=== PATIENT | male | born 1955 | race Caucasian/White ===

== ENCOUNTER 2017-11-26 07:16 | Inpatient (IN) | payer OTHER ==
[~2017-11-26] VITALS: Ht 172.7 cm; Wt 96.2 kg
[2017-11-26] VITALS (7 sets, daily range): BP systolic 131–196; BP diastolic 73–120
--- NOTE | ~2017-11-26 | EXE ---
[facility] [place] [address] STRESS ECHOCARDIOGRAM Name: HUMBERTO GASPAR Room #: 211-P [facility] IN M.R.#: [id number] Admission: 11/26/17 Attend Phys: Fish Meyer, Discharge: Date of : 57 Date of Service: 11/28/17 1056 Report #: [id number] THIS REPORT FOR: //name// APPROVED REPORT Exam: Stress Echocardiogram Indication: CAD s/p PCI Patient Location: Echo lab Stress Nurse: Amber Hernandez RN Room #: 211 Status: routine Ht: 5 ft 7 in HR: 78 bpm BP: 164/126 mmHg Medical History Medical History: CAD s/p stent, HTN, Hyperlipidemia Cardiac Risk Factors: HTN, Hyperlipidemia, Smoking, FHX of CAD Previous Cardiac Procedures: PCI Procedure The patient underwent an Exercise Stress Test using the Craig Protocol. Blood pressure, heart rate, and EKG were monitored. An Echocardiogram was performed by salvage engineering technician in four stages in quad fashion. At peak stress, four selected images were obtained and placed side by side with resting images for comparison. Stress Test Details Stress Test: Exercise stress testing was performed using a Craig protocol. HR Resting HR: 78 bpm Max Heart Rate (APMHR): 159 bpm Max HR Achieved: 148 bpm Target HR (85% APMHR): 135 bpm % of APMHR: 93 Recovery HR: 86 bpm HR response to stress: Normal HR response to stress BP Resting BP: 164/126 mmHg Max BP: 216/120 mmHg Recovery BP: 184/112 mmHg ECG [facility] [address] [place] [address] STRESS ECHOCARDIOGRAM Name: HUMBERTO GASPAR Julia Room #: 211-P [facility] IN .R.#: [id number] Admission: 11/26/17 Attend Phys: Fish Meyer, Discharge: Date of : 57 Date of Service: 11/28/17 1056 Report #: [id number] Clinical Reason for Termination: Maximal effort Exercise duration: 4 min 35 sec Highest Stage Achieved: Stage 2: 2.5 mph at 12% grade. Exercise capacity: 4.8 METs Pre-Stress Echo The resting Echocardiogram showed abnormal left ventricular contractility with an estimated Ejection Fraction of about 40-45%. The resting Echocardiogram demonstrated wall motion abnormality in the inferior . Post-Stress Echo The stress Echocardiogram showed abnormal left ventricular contractility with an estimated Ejection Fraction of about 40-45%. The stress Echocardiogram demonstrated wall motion abnormality in the inferior . Conclusion Clinical Response: Non-ischemic Exercise Capacity: Below Average Stress ECG Response: Non-ischemic Stress Echo Images: Non-ischemic fixed inf defect Other Information Study Quality: Good <Conclusion> fixed inf defect <ELECTRONICALLY SIGNED> By: Fish Meyer MD, [facility] [id number] [phone] Fish Meyer MD, FAC /INF
--- NOTE | ~2017-11-26 | D ---
[facility] [place] [address] DISCHARGE SUMMARY Name: HUMBERTO GASPAR Room #: 211-P [facility] IN M.R.#: [id number] Admission: 11/26/17 Attend Phys: Fish Meyer MD, Discharge: 11/28/17 Date of : 57 Report #: [id number] THIS REPORT FOR: //name// CC: Fish Mccann [facility]: The patient is a 62-year-old male who was lost to followup for a year and a half. Has had 2 interventions into a dominant circumflex, the last of which was 06/2016. He has had an inferior wall infarct. He came in with some back discomfort, which was consistent with his angina. He was ruled out for an infarct. No diagnostic EKG changes. Complained of some fatigue in addition. Subsequently, underwent stress echocardiographic exam, slightly submaximal to 4 minutes, but good at heart rate. No clear evidence of ischemia. No EKG changes and no definite wall motion abnormality were induced. He has been marginally compliant with his medications. His blood pressure has been up. He is working 2 jobs, lots of stress at home. We will send him home on an aspirin, amlodipine 10, Bystolic 10, lisinopril 40 and atorvastatin 40. He is to call with any recurrent chest pain or angina. Obviously some weight loss and exercise. At least aerobic activity will benefit here. We need to initiate some therapy, some advancement of his exercise and weight loss. DISCHARGE DIAGNOSES: 1. Chest and back pain of unclear etiology. 2. Coronary artery disease with history of stent x 2 to the right. Last intervention in 06/2016, moderate circumflex and left anterior descending disease (we did review these films). 3. 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 4. Hypertension. 5. Hypercholesterolemia. 6. Obesity. His LDL was also greater than 100. RECOMMENDATIONS AND PLAN: We will continue with the atorvastatin 40. A followup scheduled with him in my office in 3 weeks with a repeat lipid. Advance his diet, weight loss and exercise. Call with any issues. We would follow this up with nuclear stress testing depending on how he does and the timing of which would be the next 1-6 months. Follow up with Dr. Mccann is scheduled. Thank you for asking me to assist in the care of this patient. <ELECTRONICALLY SIGNED> By: Fish Meyer MD, FACC 11/30/17 1456 0940 1025 Fish Meyer MD, FACC /nt
--- NOTE | ~2017-11-26 | EKG ---
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1955 Requested By: Samantha Cruz Order Number: [id number] MD: Nathan Enrique Measurements Intervals [place] Rate: 80 P: 8 AK: 201 QRS: -33 QRSD: 110 T: 124 QT: 390 QTc: 450 Interpretive Statements Sinus rhythm Probable left atrial enlargement LVH with IVCD and secondary repol abnrm Inferior infarct, old Anterior ST elevation, probably due to LVH Baseline wander in lead(s) V2 Compared to ECG 07/19/2016 07:20:54 ST (T wave) deviation now present Myocardial infarct finding still present Electronically Signed On 11-26-2017 13:29:08 IT ADMIN by Nathan Enrique [email or web address] <ELECTRONICALLY SIGNED> By: Nathan Enrique MD 11/26/17 1329 8 8 Nathan Enrique MD /EPI
--- NOTE | ~2017-11-26 | EKG ---
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1955 Requested By: Fish Meyer Order Number: [id number] : Nathan Enrique Measurements Intervals [place] Rate: 83 P: 17 WI: 197 QRS: -39 QRSD: 90 T: 140 QT: 382 QTc: 449 Interpretive Statements Sinus rhythm Abnormal R-wave progression, late transition LVH with secondary repolarization abnormality Inferior infarct, old Anterior ST elevation, probably due to LVH Baseline wander in lead(s) V3 Compared to ECG 11/26/2017 07:29:30 Intraventricular conduction delay no longer present Myocardial infarct finding still present ST (T wave) deviation still present Electronically Signed On 11-27-2017 10:22:55 WAD IMPREGNATOR by Nathan Enrique [email or web address] <ELECTRONICALLY SIGNED> By: Nathan Enrique MD 11/27/17 1022 1438 1438 Nathan Enrique MD /EPI
--- NOTE | ~2017-11-26 | EKG ---
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: [facility] : 1955 Requested By: Samantha Cruz Order Number: [id number] MD: Nathan Enrique Measurements Intervals [place] Rate: 83 P: 3 ND: 199 QRS: -34 QRSD: 108 T: 100 QT: 387 QTc: 455 Interpretive Statements Sinus rhythm Probable left atrial enlargement Abnormal R-wave progression, late transition LVH with secondary repolarization abnormality Inferior infarct, old Anterior ST elevation, probably due to LVH Artifact in v2 Compared to ECG 07/19/2016 07:20:54 ST (T wave) deviation now present Intraventricular conduction delay no longer present Myocardial infarct finding still present Electronically Signed On 11-26-2017 13:28:48 COMMERCIAL PARTS PROFESSIONAL by Nathan Enrique [email or web address] <ELECTRONICALLY SIGNED> By: Nathan Enrique MD 11/26/17 1328 2 2 Nathan Enrique MD /EPI
--- NOTE | ~2017-11-26 | H ---
[facility] [place] [address] HISTORY AND PHYSICAL Name: HUMBERTO GASPAR Room #: 211-P [facility] IN M.R.#: [id number] Admission: 11/26/17 Attend Phys: Fish Meyer MD, Discharge: 11/28/17 Date of : 57 Report #: [id number] THIS REPORT FOR: //name// CC: Fish Mccann DATE OF SERVICE: 11/26/2017 HISTORY OF PRESENT ILLNESS: The patient is a 62-year-old male who I am acquainted with. He follows with our group. I had placed an emergent stent in his RCA in 06/2016. This was just distal to a stent that was placed initially in 12/2015. Those were Resolute drug-eluting stents, both dilated up to 3.1 mm. He had a 60% distal OM lesion, which was not amenable to intervention and a 40% LAD. He was lost to follow to us anyway and to Dr. Mccann, but does admit to taking his medications, which are lisinopril, 10 of atorvastatin and Toprol 25 or 50. He has not sought any followup since this. He did take his Effient for a year, he stated. He had been doing fairly well, perhaps some decrease in exercise tolerance, although not impressively. He had some back discomfort this morning, which made him uncomfortable, which he had awoken with and this was consistent with what his angina pain has been. He has some equivocal EKG changes here. He is pain free at this point with nitro, one in the ambulance and one in the Emergency Room. Equivocal EKG changes. There are inferior Q-waves noted. He is pain free and comfortable. PAST MEDICAL HISTORY: Positive for the coronary artery disease stated above with the stents in 12/2015 and 06/2016 to the mid RCA, small infarct with mild inferior wall hypo, right wrist surgery and fracture, hypertension, hypercholesterolemia, DJD, borderline moderately overweight. FAMILY HISTORY: Father from an infarct at 56. SOCIAL HISTORY: He is . He works for [employer]. Moderate alcohol user, quit tobacco 10 years ago. One child. No activity. Occasionally, may mow the lawn. ALLERGIES: No known drug allergies. REVIEW OF SYSTEMS: Negative except for some nocturia and hesitancy and as stated above. LABORATORY DATA: Creatinine 1.1, potassium 4.0. H and H are 13 and 41. Troponin is negative. Chest x-ray is no acute process. PHYSICAL EXAMINATION: VITAL SIGNS: Blood pressure was 190/120. He was given some labetalol and nitro paste. Currently, his pulse is in the 70s and 140/96. [facility] [address] [place] [address] HISTORY AND PHYSICAL Name: JAMESELAINAHUMBERTO Room #: 211-P DIS IN M.R.#: [id number] Admission: 11/26/17 Attend Phys: Fish Meyer MD, Discharge: 11/28/17 Date of : 57 Report #: [id number] GENERAL: He is in no distress. HEENT: Eyes reveal xanthelasmas. Pharynx is clear. NECK: Shows preserved upstrokes without JVD or bruits. LUNGS: Clear. CARDIAC: Regular rate and rhythm. S1, S2. ABDOMEN: Soft. No HSM, abdominal bruit. EXTREMITIES: Reveal no edema. Distal pulses intact. NEUROLOGIC: Nonfocal. SKIN: Warm and dry without xanthoma or ulcer. MUSCULOSKELETAL: Generalized arthritic changes. ASSESSMENT: 1. Recurrent chest pain consistent with prior angina. 2. Coronary artery disease with history of stent x 2 to the mid right coronary artery in December and 06/2016. 3. Mild ischemic cardiomyopathy. 4. Hypertension. 5. Hypercholesterolemia. RECOMMENDATIONS AND PLAN: The patient has been under a lot of stress. There has been really no medical followup since his stents. He has been taking his medications, he states. He also has to provide a fair amount of assistance to his who is relatively debilitated. I do not perceive that this may well be his angina, but we are not having, at least not an acute infarct. We will repeat the EKG and troponin in 6 hours and we will control his blood pressure. We have given labetalol and now IV Lopressor. He is pain free. Continue the nitro paste and Lovenox until I can discern whether there has been an ischemic event, and then there would be consideration of cardiac catheterization versus stress testing. We will check an echo Doppler and report that. I have transferred him from the ER to the CCU. He is pain free and stable hemodynamically. <ELECTRONICALLY SIGNED> By: Fish Meyer MD, FACC 11/30/17 1455 1047 1108 Fish Meyer MD, FACC /nt
--- NOTE | ~2017-11-26 | 2DMMODE ---
[facility] [address] [place] [address] 2 D/M-MODE ECHOCARDIOGRAM Name: HUMBERTO GASPAR Room #: 211-P [facility] IN ..#: [id number] Admission: 11/26/17 Attend Phys: Fish Meyer, Discharge: Date of : 57 Date of Service: 11/27/17 1353 Report #: [id number] THIS REPORT FOR: //name// APPROVED REPORT Study performed: 11/26/2017 09:35:51 EXAM: Comprehensive 2D, Doppler, and color-flow Echocardiogram Patient Location: Bedside Room #: ER Status: on-call BSA: 2.11 HR: 78 bpm BP: 153/99 mmHg Other Information Study Quality: Good Risk Factors: Cardiac Risk Factors: HTN, [place] Indications CAD Chest Pain 2D Dimensions LVEF(%): 43.63 (>50%) IVSd: 13.22 (7-11mm) LVOT Diam: 22.00 (18-24mm) LVDd: 54.53 mm PWd: 12.77 (7-11mm) Ascending Ao: 36.03 (22-36mm) LVDs: 42.65 (25-40mm) Aortic Root: 31.90 mm LV Single Plane 4CH: 47.01 % LV Single Plane 2CH: 42.00 % Noel's LVEF: 44.51 % Biplane EF: 41.3 % Volumes Left Atrial Volume (Systole) Single Plane 4CH: 75.50 mL Single Plane 2CH: 78.10 mL LA ESV Index: 40.00 mL/m2 Aortic Valve AoV Peak Rehan.: 1.36 m/s AO Peak Gr.: 7.35 mmHg LVOT Max P.64 mmHg LVOT Max V: 0.81 m/s [facility] [place] [address] 2 D/M-MODE ECHOCARDIOGRAM Name: HUMBERTO GASPAR Room #: 211-P [facility] IN M.R.#: [id number] Admission: 11/26/17 Attend Phys: Fish Meyer, Discharge: Date of : 57 Date of Service: 11/27/17 1353 Report #: [id number] NEYMAR Vmax: 2.36 cm2 AI Vmax: 4.47 m/s AI [place]: 2.07 m/s2 AI PHT: 624.71 ms Mitral Valve E/A Ratio: 0.8 MV Decel. Time: 212.03 ms MV E Max Rehan.: 0.71 m/s MV A Rehan.: 0.90 m/s MV PHT: 61.49 ms IVRT: 55.36 ms TDI E/Lateral E': 10.14 E/Medial E': 17.75 Medial E' Rehan.: 0.04 m/s Lateral E' Rehan.: 0.07 m/s Pulmonary Valve PV Peak Rehan.: 0.93 m/s PV Peak Gr.: 3.46 mmHg Pulmonary Vein P Vein S: 0.59 m/s P Vein A: 0.30 m/s P Vein D: 0.39 m/s P Vein A Dur.: 117.6 msec P Vein S/D Ratio: 1.51 Tricuspid Valve RAP Estimate: 7.00 mmHg Left Ventricle The left ventricle is normal size. Mid-basal inferior hypokinesis. Lateral hypokinesis. Mild concentric left ventricular hypertrophy. Left ventricular systolic function is mildly decreased. LVEF is 45-50%.inf wall hypokinetoc Grade I - abnormal relaxation pattern. Right Ventricle The right ventricle is normal size. The right ventricular systolic function is normal. Atria Left atrium is mildly dilated. The right atrium size is normal. Aortic Valve The Aortic valve is sclerotic. Mild aortic reg[place] [address] 2 D/M-MODE ECHOCARDIOGRAM Name: HUMBERTO GASPAR Room #: 211-P [facility] IN [facility]#: [id number] Admission: 11/26/17 Attend Phys: Fish Meyer, Discharge: Date of : 57 Date of Service: 11/27/17 1353 Report #: [id number] aortic valvular stenosis. Mitral Valve The mitral valve is normal in structure. Trace to mild mitral regurgitation. No evidence of mitral valve stenosis. Tricuspid Valve The tricuspid valve is normal in structure. Trace tricuspid regurgitation. Pulmonic Valve The pulmonary valve is normal in structure. There is no pulmonic valvular regurgitation. Great Vessels The aortic root is normal in size. IVC is normal in size and collapses with >50% inspiration Pericardium There is no pericardial effusion. <Conclusion> The left ventricle is normal size. Left ventricular systolic function is mildly decreased. LVEF is 45-50%.inf wall hypokinetoc Grade I - abnormal relaxation pattern. The right ventricle is normal size. Left atrium is mildly dilated. The Aortic valve is sclerotic. There is no aortic valvular stenosis. Trace to mild mitral regurgitation. Trace tricuspid regurgitation. The aortic root is normal in size. There is no pericardial effusion. <ELECTRONICALLY SIGNED> By: Fish Meyer MD, FACC 11/27/17 1353 1353 1353 Fish Meyer MD, FACC /INF
[~2017-11-26 07:16] MED LIST: ASPIRIN325 PO; AZOR 10-40 MG1 EACH PO; BYSTOLIC 5 MG5 M1 PO; EFFIENT10 MG PO; LIPITOR 20 MG T20 M1 PO; LISINOPRIL10 MG PO; LOPRESSOR25 PO; METOPROLOL SUCC50 MG PO; NITROGLYCERIN0.4 MG SUBLING; NOHOMEMEDICATIONS; NORCO 5-325 TA1 EACH PO; TOPROL XL25 MG PO; ZOCOR20 MG PO
[2017-11-26 07:51] LABS: ABSOLUTE NEUTROPHILS 3.2 thou/uL (1.4-8.2); BASOPHILS 0.8 % (0.0-2.0); EOSINOPHILS 2.4 % (0.0-3.0); HEMATOCRIT 41.7 % (42.0-52.0); HEMOGLOBIN 13.7 gm/dL (14.0-18.0); LYMPHOCYTES 26.7 % (24.0-44.0); MCH 28.2 pg (26.0-34.0); MCHC 32.9 g/dL (28.0-37.0); MCV 85.8 fL (80.0-100.0); MONOCYTES 11.2 % (1.0-8.0); PLATELET COUNT 238 thou/uL (150-400); POLYS 58.9 % (36.0-66.0); RBC 4.87 mil/uL (4.50-6.00); RDW 15.7 % (10.5-14.5); WBC 5.4 thou/uL (4.0-11.0)
[2017-11-26 08:01] LABS: ANION GAP 8 mmol/L (7-16); BUN 16 mg/dL (7-18); CALCIUM 8.7 mg/dL (8.5-10.1); CHLORIDE 104 mmol/L (98-107); CO2 28 mmol/L (21-32); CREATININE 1.1 mg/dL (0.7-1.3); GLUCOSE 136 mg/dL (74-106); SODIUM 140 mmol/L (136-145)
[2017-11-26 08:09] LABS: TROPONIN-I < 0.04 ng/mL (<0.06)
[2017-11-26] MEDS ORDERED: ZOCOR20 MG PO (08:19)
[2017-11-26 10:39] LABS: APTT 26.1 Seconds (24.5-32.8); PROTIME 9.9 Seconds (9.3-11.4)
[2017-11-27 04:19] VITALS: BP 180/121
[2017-11-27 08:00] VITALS: BP 178/99
[2017-11-27 12:00] VITALS: BP 191/109
[2017-11-27 18:15] VITALS: BP 176/104
[2017-11-27 20:47] VITALS: BP 206/116
[2017-11-27 23:04] VITALS: BP 167/105
[2017-11-28 03:56] LABS: CHOLESTEROL 142 mg/dL (<200); HDL CHOLESTEROL 44 mg/dL (>40); LDL CHOLESTEROL 84 mg/dL (<100); TC:HDL 3.2 Ratio (Not establshd); TRIGLYCERIDE 70 mg/dL (<150); VLDL 14 mg/dL (<40)
[2017-11-28 03:58] LABS: SERUM ASSESSMENT Clear
[2017-11-28 04:21] VITALS: BP 151/94
[2017-11-28 07:05] VITALS: BP 165/111
[2017-11-28] MEDS ORDERED: BYSTOLIC10 MG PO (09:39)
[2017-11-28] MEDS ORDERED: LISINOPRIL10 MG PO (09:39)
[2017-11-28] MEDS ORDERED: AMLODIPINE BESY10 MG PO (09:39)
[2017-11-28] MEDS ORDERED: ATORVASTATIN CA40 MG PO (09:39)
[2017-11-28 09:56] VITALS: BP 165/111
[2017-11-28 10:45] VITALS: BP 165/111
[2017-11-28 12:29] VITALS: BP 165/111
== END 2017-11-28 14:44 | disposition home or self-care (01) | DRG 313 ==
LOC: ER 07:16 → EROBS 08:13 → 2N 08:13
PROVIDERS: Emergency Medicine; Internal Medicine Cardiovascular Disease
DX: R07.9 Chest pain, unspecified (principal); I10 Essential (primary) hypertension; I25.10 Atherosclerotic heart disease of native coronary artery without angina pectoris; I25.5 Ischemic cardiomyopathy; E78.00 Pure hypercholesterolemia, unspecified; E66.9 Obesity, unspecified; I25.2 Old myocardial infarction; Z95.5 Presence of coronary angioplasty implant and graft; Z79.82 Long term (current) use of aspirin; Z79.899 Other long term (current) drug therapy; Z87.891 Personal history of nicotine dependence; Z68.32 Body mass index [BMI] 32.0-32.9, adult
CPT/HCPCS: 10194

== ENCOUNTER 2019-05-04 23:46 | Inpatient (IN) | payer OTHER ==
[~2019-05-04] VITALS: Ht 172.2 cm; Wt 96.6 kg
[~2019-05-04 23:46] MED LIST changes: +AMLODIPINE BESY10 MG PO; +ATORVASTATIN CA40 MG PO; +BYSTOLIC10 MG PO
[2019-05-04 23:48] VITALS: BP 217/121
[2019-05-05 00:29] LABS: HEMATOCRIT 45.8 % (42.0-52.0); HEMOGLOBIN 15.6 gm/dL (14.0-18.0); MCH 31.4 pg (26.0-34.0); MCHC 34.1 g/dL (28.0-37.0); MCV 91.9 fL (80.0-100.0); PLATELET COUNT 220 thou/uL (150-400); RBC 4.98 mil/uL (4.50-6.00); RDW 13.5 % (10.5-14.5); WBC 5.4 thou/uL (4.0-11.0)
[2019-05-05 00:35] LABS: ANION GAP 13 mmol/L (7-16); BUN 14 mg/dL (7-18); CALCIUM 9.4 mg/dL (8.5-10.1); CHLORIDE 101 mmol/L (98-107); CO2 25 mmol/L (21-32); GLUCOSE 107 mg/dL (74-106); POTASSIUM 3.6 mmol/L (3.5-5.1); SODIUM 139 mmol/L (136-145)
[2019-05-05 00:44] LABS: TROPONIN-I <0.06 ng/mL (<0.06)
[2019-05-05 01:17] LABS: ATYPICAL LYMPHS 1 %
[2019-05-05 09:15] VITALS: BP 132/81
--- NOTE | 2019-05-05 10:57 | EKG ---
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[facility] : 1955 Requested By: José Suarez Order Number: [id number] MD: Luiz Lee Measurements Intervals [place] Rate: 79 P: 3 NC: 197 QRS: -36 QRSD: 112 T: 9 QT: 391 QTc: 449 Interpretive Statements Sinus rhythm Probable left atrial enlargement Abnormal R-wave progression, late transition Left ventricular hypertrophy Inferior infarct, old ST elevation, consider anterolateral injury Baseline wander in lead(s) III No previous ECG available for comparison Electronically Signed On 05-05-2019 10:57:36 CDT by Luiz Lee [email or web address] <ELECTRONICALLY SIGNED> By: Luiz Lee MD 05/05/19 1057 0004 0004 Luiz Lee MD /EPI
--- NOTE | 2019-05-05 10:58 | EKG ---
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1955 Requested By: José Suarez Order Number: [id number] MD: Luiz Lee Measurements Intervals [place] Rate: 77 P: 7 TX: 212 QRS: -40 QRSD: 115 T: -12 QT: 392 QTc: 444 Interpretive Statements Sinus rhythm Prolonged [place] interval Nonspecific IVCD with LAD Left ventricular hypertrophy Inferior infarct, age indeterminate Compared to ECG 11/26/2017 14:38:28 Intraventricular conduction delay now present Myocardial infarct finding still present ST (T wave) deviation still present Electronically Signed On 05-05-2019 10:58:22 CDT by Luiz Lee [email or web address] <ELECTRONICALLY SIGNED> By: Luiz Lee MD 05/05/19 1058 0050 0050 Luiz Lee MD /EPI
[2019-05-05 11:09] VITALS: BP 136/89
[2019-05-05 12:08] VITALS: BP 162/88
[2019-05-05 13:15] VITALS: BP 150/77
--- NOTE | 2019-05-05 13:41 | NUR ---
PT ADMITTED FROM ED APPROX 1230. A&OX4, SR ON MONITOR, NO C/O OF CHEST PAIN, C/O PAIN IN LEFT SHOULDER WHEN TURNING HEAD TO LEFT. VSS. IV IN L AC SALINE LOCKED. RESTING COMFORTABLY. WILL CONTINUE TO MONITOR AND FOLLOW POC.
--- NOTE | 2019-05-05 17:26 | NUR ---
PT CONTINUES TO BE STABLE WITH NO C/O OF CHEST PAIN OR DIAPHORESIS. VSS. UP AT TOMMIE. SON AT BEDSIDE. WILL CONTINUE TO MONITOR AND FOLLOW POC.
[2019-05-05 19:34] VITALS: BP 145/89
[2019-05-06 04:45] VITALS: BP 144/82
--- NOTE | 2019-05-06 08:09 | HC ---
[facility] [place] [address] CONSULTATION Name: HUMBERTO GASPAR Room #: 213-P ADM IN M.R.#: [id number] Admission: 05/05/19 Attend Phys: Deondre Kelly MD Discharge: Date of : 57 Report #: [id number] THIS REPORT FOR: //name// CC: Kirby Kelly INDICATION: Anginal equivalent. HISTORY OF PRESENT ILLNESS: This is a 64-year-old gentleman with a history of DE; PCI, hypertension, hypercholesterolemia, presenting with back and left arm discomfort. Yesterday morning, he developed a discomfort in the upper mid back area, radiating down his left arm. It has been persistent and progressive since yesterday. He denies any shortness of breath, palpitations or lightheadedness. In the ER, the ECG reveals sinus rhythm with no acute ST segment changes. Two sets of troponin levels are negative. He tells me that when he turns his head to the left, the discomfort increases in intensity. There is no history of nausea, diarrhea, or fevers. PAST MEDICAL HISTORY: CAD with stent placement in 12/2015, presented with an inferior wall DE in 06/2016, undergoing stent placement. History of [id number]-byxpcg disease in the LAD and left circumflex arteries. Stress echo from 11/2017 was nonischemic. History of hypertension, hypercholesterolemia. ALLERGIES: None. MEDICATIONS: At home include aspirin daily, Lipitor 40 mg daily, Bystolic 10 mg, amlodipine 10 mg, and lisinopril 40 mg daily. SOCIAL HISTORY: Denies tobacco use. FAMILY HISTORY: Negative for premature CAD. REVIEW OF SYSTEMS: A full 10-point review of systems performed. Only the pertinent positives and negatives are described in the HPI. PHYSICAL EXAMINATION: VITAL SIGNS: Blood pressure is 130/80, heart rate is 60 beats per minute. GENERAL: Appearance is a well-developed, well-nourished male in no acute distress. HEENT: Normocephalic, atraumatic. Oral mucosa moist. NECK: Supple. LUNGS: Clear to auscultation. CARDIAC: Regular rate and rhythm. S1, S2 positive. ABDOMEN: Soft, nontender. EXTREMITIES: No cyanosis, trace to 1+ bilateral lower extremity edema. ECG reveals sinus rhythm, inferior Q-waves, early repolarization. [facility] [address] [place] [address] CONSULTATION Name: HUMBERTO GASPAR Room #: 213-P [facility] IN M.R.#: [id number] Admission: 05/05/19 Attend Phys: Deondre Kelly MD Discharge: Date of : 57 Report #: [id number] LABORATORY VALUES: Two sets of troponins are negative. White count is 5.4, hemoglobin 15.6, creatinine is 1.0. ASSESSMENT AND PLAN: 1. Chest pain syndrome, he has had discomfort for more than 12 hours in duration. Two sets of troponins are negative and the ECG does not show any acute ST segment changes. Doubt that this is cardiac related. However, he reports that the discomfort is worsened with movement of his head, probably neurologic in etiology. 2. Hypertension, continue medications. 3. Hypercholesterolemia, tolerating statin therapy. Offers no complaints of myalgias. 4. CAD/stent placement, continue with aspirin. <ELECTRONICALLY SIGNED> By: Luiz Lee MD 05/06/19 0809 1145 1527 Luiz Lee MD /nt
[2019-05-06 08:33] VITALS: BP 165/93
[2019-05-06 11:50] VITALS: BP 150/82
[2019-05-06] MEDS ORDERED: TRAMADOL 50 MG50 MG PO (14:33)
[2019-05-06] MEDS ORDERED: LYRICA 75 MG CA75 MG PO (14:33)
[2019-05-06] MEDS ORDERED: ROBAXIN 750 MG750 MG PO (14:33)
[2019-05-06] MEDS ORDERED: PREDNISONE 20 M20 M1 PO (14:33)
[2019-05-06 14:56] VITALS: BP 150/82
[2019-05-06 15:17] VITALS: BP 150/82
--- NOTE | 2019-05-06 15:46 | NUR ---
ASSUMED CARE OF PT AT SHIFT CHANGE. ASSESSMENT CHARTED. MEDS PER NOV. PT A&O X4. VSS. NO C/O OF CHEST PAIN. COMPLETED DISCHARGE ORDERS. GAVE PT RX FOR NEW MEDS. DISCUSSED DISCHARGE INSTURCTINS AND GAVE COPIES OF MED INFO AND DISCHARGE INSTRUCTIONS. PT COMMUNICATED UNDERSTANDING. DC IV, TELE LEADS AND BOX.
== END 2019-05-06 15:37 | disposition home or self-care (01) | DRG 313 ==
LOC: ER 23:46 → EROBS 05-05 05:43 → 2N 05-05 05:43
PROVIDERS: Emergency Medicine; ADMIT Internal Medicine
DX: R07.89 Other chest pain (principal); I16.1 Hypertensive emergency; E78.00 Pure hypercholesterolemia, unspecified; I10 Essential (primary) hypertension; I25.10 Atherosclerotic heart disease of native coronary artery without angina pectoris; M50.322 Other cervical disc degeneration at C5-C6 level; M50.323 Other cervical disc degeneration at C6-C7 level; I25.2 Old myocardial infarction; Z95.5 Presence of coronary angioplasty implant and graft; Z87.891 Personal history of nicotine dependence; Z79.899 Other long term (current) drug therapy
CPT/HCPCS: 10081

== ENCOUNTER 2019-06-12 13:51 | Emergency (ER) | payer OTHER ==
[~2019-06-12] VITALS: Ht 172.7 cm; Wt 95.3 kg
--- NOTE | ~2019-06-12 | EMS ---
[facility] [address] [place] [address] EMS Patient Care Report Name: HUMBERTO GASPAR Room #: DEP DAPHNE Alejandro#: [id number] Admission: 06/12/19 ������������������ Attend Phys: Discharge: 06/12/19 ������������������ Date of : 57 Report #: [id number] THIS REPORT FOR: //name// Report Transmitted: 06/14/2019 16:04 EMS Care Summary [facility] MED-ACT Incident [id number] @ 06/12/2019 13:02 Incident Location [address] [place] [id number] Patient HUMBERTO GASPAR Male, 64 Years 1955 Patient Address [address] [place] [id number] Patient History Cardiac Arrythmia,Hypertension,Cardiac - Stent, Patient Allergies No known allergies, Patient Medications Lyrica, Lisinopril, Aspirin, Cymbalta, Amlodipine, Chief Complaint I feel dizzy Disposition Transported No Lights/[place] Dispatch Reason Chest Pain (Non-Traumatic) Transported To [facility] Narrative Patient reports he began feeling dizzy and had a flutter in his chest while driving to work today. After arrival at work, patient informed his supervisor of guidance and testing, who called 911. [facility] [address] [place] [address] EMS Patient Care Report Name: HUMBERTO GASPAR Room #: DEP ER AleshiaRobinShiraRobin#: [id number] Admission: 06/12/19 ������������������ Attend Phys: Discharge: 06/12/19 ������������������ Date of : 57 Report #: [id number] On arrival, patient was found sitting in a chair being assessed by Frances cardoso. Patient advised that he still felt dizzy, but that the fluttering in his chest has gone away. Patient denied any MAGANA, N/V, chest pain, dyspnea, diarrhea, recent illness or injury. Initial Vitals @13:38P: 99,R: 18,BP: 171/103,Pain: 0/10,SpO2: 96,MN Suspected: false @13:25P: 106,R: 20,BP: 167/106,SpO2: 98, @13:17P: 112,R: 20,BP: 198/122,SpO2: 97,MN Suspected: false @13:30P: 103,R: 20,BP: 167/109,Pain: 0/10,SpO2: 96, @13:13P: 129,R: 20,BP: 202/125,SpO2: 98, @13:13P: 124,R: 20,BP: 202/125,Pain: 0/10,SpO2: 97,MN Suspected: false Assessments @13:11MENTAL:Person Oriented,Time Oriented,Place Oriented,Event Oriented,SKIN:HEENT:Head/Face: No Abnormalities,LUNG SOUNDS:ABDOMEN:PELVIS//GI:No Abnormalities,EXTREMITIES:Left Arm: No Abnormalities,Right Arm: No Abnormalities,Left Leg: No Abnormalities,Right Leg: No Abnormalities,PULSE:NEURO:No Abnormalities, Impression Dizziness Procedures @13:1312-Lead ECGResponse: UnchangedSucceeded@13:3812-Lead ECGResponse: UnchangedSucceeded@13:1812-Lead ECGResponse: UnchangedSucceeded@PTAAspirin - 324 Milligrams (mg) - OralResponse: Unchanged@13:24Saline Lock 10cc (20 ga) Site: Antecubital-RightResponse: UnchangedSucceeded Timeline DELIVERER FOOD,Aspirin - 324 Milligrams (mg) - Oral,Response: Unchanged 13:02,Call Received 13:02,Psap Call 13:02,Dispatched 13:03,En Route 13:08,On Scene 13:10,At Patient 13:13,12-Lead ECG,Response: UnchangedSucceeded, 13:13,BP: 202/125 M,PULSE: 124,RR: 20 R,SPO2: 97 Ox,ETCO2: ,BG: ,PAIN: 0,GCS: , 13:13,BP: 202/125 M,PULSE: 129,RR: 20 R,SPO2: 98 Ox,ETCO2: ,BG: ,PAIN: ,GCS: , 13:17,BP: 198/122 M,PULSE: 112,RR: 20 R,SPO2: 97 Ox,ETCO2: ,BG: ,PAIN: ,GCS: , 13:18,12-Lead ECG,Response: UnchangedSucceeded, 13:24,Saline Lock 10cc 20 ga Site: Antecubital-Right,Response: UnchangedSucceeded, 13:25,BP: 167/106 M,PULSE: 106,RR: 20 R,SPO2: 98 Ox,ETCO2: ,BG: ,PAIN: ,GCS: , 13:26,Depart Scene [address] [place] [address] EMS Patient Care Report Name: HUMBERTO GASPAR Room #: [facility] M.R.#: [id number] Admission: 06/12/19 ������������������ Attend Phys: Discharge: 06/12/19 ������������������ Date of : 57 Report #: [id number] 13:30,BP: 167/109 M,PULSE: 103,RR: 20 R,SPO2: 96 Ox,ETCO2: ,BG: ,PAIN: 0,GCS: , 13:38,12-Lead ECG,Response: UnchangedSucceeded, 13:38,BP: 171/103 M,PULSE: 99,RR: 18 R,SPO2: 96 Ox,ETCO2: ,BG: ,PAIN: 0,GCS: , 13:44,At Destination 14:00,Call Closed Disclaimer v1.1 Copyright 2019 [employer] This EMS Care Summary contains data elements from the applicable legal record (which may be displayed differently). It is designed to provide pertinent information for the following purposes: continuity of care, clinical quality, and state data reporting. The complete legal record is available to ED staff and administrators of the receiving hospital in [employer]'s Patient Tracker. All data is provided "as is."
[~2019-06-12 13:51] MED LIST changes: +LYRICA 75 MG CA75 MG PO; +PREDNISONE 20 M20 M1 PO; +ROBAXIN 750 MG750 MG PO; +TRAMADOL 50 MG50 MG PO
[2019-06-12] MEDS ORDERED: ZETIA10 MG PO (14:02)
[2019-06-12] MEDS ORDERED: BYSTOLIC20 MG PO (14:02)
[2019-06-12] MEDS ORDERED: CYMBALTA30 MG PO (14:02)
[2019-06-12 14:03] LABS: ABSOLUTE NEUTROPHILS 5.7 thou/uL (1.4-8.2); EOSINOPHILS 0.4 % (0.0-3.0); HEMATOCRIT 45.2 % (42.0-52.0); LYMPHOCYTES 17.5 % (24.0-44.0); MCH 31.3 pg (26.0-34.0); MCHC 33.3 g/dL (28.0-37.0); MONOCYTES 7.5 % (1.0-8.0); PLATELET COUNT 236 thou/uL (150-400); POLYS 73.6 % (36.0-66.0); RBC 4.81 mil/uL (4.50-6.00); RDW 13.7 % (10.5-14.5); WBC 7.7 thou/uL (4.0-11.0)
[2019-06-12 14:08] LABS: ANION GAP 15 mmol/L (7-16); BUN 22 mg/dL (7-18); CALCIUM 9.5 mg/dL (8.5-10.1); CHLORIDE 103 mmol/L (98-107); CO2 24 mmol/L (21-32); GLUCOSE 177 mg/dL (74-106); POTASSIUM 3.7 mmol/L (3.5-5.1); SODIUM 142 mmol/L (136-145)
[2019-06-12 14:18] LABS: ALBUMIN 4.3 g/dL (3.4-5.0); SGOT 64 U/L (15-37); SGPT 117 U/L (30-65); TOTAL BILIRUBIN 0.7 mg/dL (<0.1-1.0); TROPONIN-I <0.06 ng/mL (<0.06)
[2019-06-12 15:18] VITALS: BP 168/93
[2019-06-12] MEDS ORDERED: ATIVAN0.5 MG PO (15:23)
--- NOTE | 2019-06-13 08:10 | EKG ---
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 : 1955 Requested By: Cheyenne Covarrubias Order Number: [id number] MD: Nathan Enrique Measurements Intervals [place] Rate: 104 P: 3 DE: 179 QRS: -38 QRSD: 109 T: 21 QT: 347 QTc: 457 Interpretive Statements Sinus tachycardia Abnormal R-wave progression, late transition Left ventricular hypertrophy Electronically Signed On 06-13-2019 8:10:23 CDT by Nathan Enrique [email or web address] ��������������������������������������������� <ELECTRONICALLY SIGNED> ���������������������������������������� By: Nathan Enrique MD ��������������������������������������������� 06/13/19 0810 1350 1350 Nathan Enrique MD /CARLYN
== END 2019-06-12 15:39 | disposition home or self-care (01) ==
LOC: ER 13:51
PROVIDERS: Emergency Medicine Emergency Medical Services
DX: I10 Essential (primary) hypertension (principal); F41.9 Anxiety disorder, unspecified; R42 Dizziness and giddiness; Z87.891 Personal history of nicotine dependence

== ENCOUNTER → 2019-06-21 | Outpatient (CLI) | payer OTHER ==
[~2019-06-21] MED LIST changes: +ASA81BEC PO; +ATIVAN0.5 MG PO; +BYSTOLIC20 MG PO; +CYMBALTA30 MG PO; +EDARBI40 MG PO; +MEDROLDOSEPACK PO; +ZETIA10 MG PO
== END ==
LOC: MRI 11:56
DX: M50.122 Cervical disc disorder at C5-C6 level with radiculopathy (principal); M25.78 Osteophyte, vertebrae; M48.02 Spinal stenosis, cervical region

== ENCOUNTER → 2019-07-13 | Outpatient (CLI) | payer OTHER ==
[~2019-07-13] VITALS: Ht 375.9 cm; Wt 96.5 kg
[2019-07-13 08:30] VITALS: BP 168/98
--- NOTE | 2019-07-13 09:05 | NUR ---
Pain Clinic Assessment: 1. History of Osteoarthritis: NECK History of Rheumatoid Arthritis: Not Applicable 2. Height: 5 ft. 88 in. 375.9 cm. Weight: 212.8 lb. oz. 96.526 kg. Patient's BMI: 6.8 3. Vital Signs: BP: 168/98 Pulse: 78 Resp: 16 Temp: 02 Sat: 99 ECG Mon: 4. Pain Intensity: 6 5. Fall Risk: Dizziness: Y Needs help standing or walking: N Fallen in the last 3 months: N Fall risk comments: 6. Patient on Blood Thinner: None 7. History of Hypertension: Y 8. Opioid Therapy greater than 6 weeks: N Opiate Contract Signed: 9. Risk Assessment Tool Provided: 10. Functional Assessment Tool: 11. Recreational Drug Use: Never Drug Type: Tobacco Use: Never Smoker Tobacco Type: Amount or Packs/day: How Many Years: Alcohol Use: No Frequency: Quant:
--- NOTE | 2019-08-03 08:14 | HPC ---
[facility] [address] [place] [address] PAIN MANAGEMENT CONSULTATION Name: CHASITYHUMBERTO LANDRY Room #: REG KORIPhi Alejandro#: [id number] Admission: 07/13/19 Attend Phys: Lizandro Mercado MD Discharge: Date of : 57 Report #: [id number] THIS REPORT FOR: //name// CC: Kirby Burch DATE OF SERVICE: 07/13/2019 CHIEF COMPLAINT: Neck pain and left arm pain. HISTORY OF PRESENT ILLNESS: The patient is a 64-year-old gentleman who has been referred to the pain clinic for evaluation. The patient has had pain, which has been problematic since 03/2019. He has noticed a worsening of his pain. He notes that using his computer exacerbates his discomfort. Moving his head up and down motion exacerbates her discomfort. Notes some increased discomfort when sleeping on his side. Does note some decreased strength in his hands. Has some numbness and tingling involving his index and thumb. He has been told that he has some spinal stenosis. He has had some burning pain in the left arm. Has some sensation of pins and needle sensation in his arm. Feels that the pain has become progressively worse. Denies any traumatic incident. Rates his pain between 4/10, can rise to the level of 6/10 at its worst. Has tried Lyrica and has noted some improvement in the pain. Has had a steroid injection in the shoulder area with no long-term benefit. ALLERGIES: No known drug allergies. CURRENT MEDICATIONS: Aspirin 81 mg, Bystolic 20 mg, Cymbalta 30 mg, Zetia 10 mg, tramadol 50 mg q.4 hours p.r.n., Lyrica 75 mg b.i.d., amlodipine 10 mg, and azilsartan 40 mg. PAST MEDICAL HISTORY: Myocardial infarction x 2, hypertension, stent placement x 2, hypercholesterolemia, hypertension, and emotional problems. PAST SURGICAL HISTORY: Fracture of the right wrist 03/2014 and stent placement. 01/2016 and 06/2017. 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 He is working at this juncture. REVIEW OF SYSTEMS: Weight change, fatigue, weakness, wears glasses, heart trouble, loss of appetite, numbness and tingling sensation in the left thumb and index finger, nervousness, and depression. LABORATORY DATA: MRI cervical spine dated 06/21/2019: 1. C4-C5, no disk bulge. There is no central canal [place] [address] PAIN MANAGEMENT CONSULTATION Name: HUMBERTO GASPAR Room #: REG [facility].#: [id number] Admission: 07/13/19 Attend Phys: Lizandro Mercado MD Discharge: Date of : 57 Report #: [id number] 2. C5-C6, there is a generalized posterior disk osteophyte complex, which contributes to mild central canal stenosis and severe bilateral neural foraminal stenosis. 3. C6-C7, there is a generalized posterior disk osteophyte complex, which contributes to severe left and [id number] left neural foraminal stenosis and mild neural canal stenosis. 4. there is no bulge. There is no central canal or neural foraminal stenosis. X-ray cervical spine 4 views dated 05/05/2019. Impression, no fracture or listhesis. Mild degenerative disk disease at C5-C6 and C6-C7 with at least mild facet arthropathy seen throughout the cervical spine with multilevel left-sided osseous foraminal narrowing due to uncovertebral hypertrophy and facet arthropathy. PAIN CLINIC ASSESSMENT/PQRS: 1. History of osteoarthritis. The patient has some arthritic changes in his neck. He is not being treated for rheumatoid arthritis. 2. Height 5 feet 8 inches, weight 212 pounds, BMI to be calculated. 3. Vital signs: Blood pressure 168/98, pulse 78, respiratory rate 16, room air saturation 99%. 4. Pain intensity 6/10. 5. Fall history: The patient has not fallen in the last 3 months. 6. Blood thinner. The patient is not on a blood thinning medication. 7. Hypertension. The patient is not being treated for hypertension. 8. Opioids greater than 6 weeks. The patient is not on opioid regimen, is using tramadol. 9. Risk assessment tool, low for opioid use. 10. Functional assessment tool. 11. Recreational drug use. The patient denies. 12. Tobacco: The patient has never smoked. 13. Alcohol. The patient denies frequent use of alcoholic beverages at this juncture. PHYSICAL EXAMINATION: GENERAL: The patient is a well-developed, well-nourished white male. Appears his stated age. He is alert and oriented x 3. Affect is appropriate. Speech is fluent. HEENT: Normocephalic, atraumatic. Extraocular eye muscles intact. Sclerae nonicteric. Mucous membranes are moist. NECK: Without adenopathy or JVD. EXTREMITIES: Upper extremity muscle strength is judged to be 5/5 for the right side. The patient has some pain and discomfort on the left shoulder with pain that radiates down into the arm and forearm with numbness and tingling. The patient has a perception of numbness in his thumb and index finger. Notes some [address] [address] PAIN MANAGEMENT CONSULTATION Name: HUMBERTO GASPAR Room #: REG [facility]#: [id number] Admission: 07/13/19 Attend Phys: Lizandro Mercado MD Discharge: Date of : 57 Report #: [id number] decreased meter tester strength. Deep tendon reflexes are +1 and on the right and about 1+ on the left. HEART: Regular rate. ABDOMEN: Nontender. LUNGS: Clear to auscultation. MUSCULOSKELETAL: Lower extremity muscle strength is judged to be 5/5 for the major muscle groups in the lower extremity. Forward bending to about 90 degrees was not very problematic. Heel standing and toe standing were not problematic. Left and right lateral bending and left and right lateral rotation were not problematic. IMPRESSION: 1. Cervical radiculopathy involving the left arm with numbness and tingling in the thumb and middle finger. Discomfort in the C6-C7 dermatomal distribution on the left. 2. Myocardial infarction x 2. 3. Hypertension. 4. Stent placement x 2. 5. Hypercholesterolemia. 6. Hypertension. 7. Emotional problems. RECOMMENDATIONS: We discussed treatment options with the patient. The patient is having C6-C7 dermatomal changes with sensory changes with numbness, tingling, and weakness in his left upper arm. The patient has increased pain and discomfort when lying on his right side and more pain and discomfort in the morning when he awakens and finds that using his computer with his arm stretch forward exacerbates his discomfort. Notes some increased discomfort with driving with his arm extended. The patient is unable to take nonsteroidal anti-inflammatory medications because of his heart stents. Has had an MRI. He has been stretching and doing physical activity to try and increase his muscle strength and decreased pain and discomfort he is experiencing in the left arm. We will petition the patient's insurance carrier. The patient is showing outward signs of cervical radiculopathy with sensory changes. He will return to the Pain Clinic at which time he will undergo a cervical epidural steroid injection to help curtail his pain and discomfort. The patient has been given a Medrol Dosepak to take in the interim. Hopefully, he will find that this is helpful. Should his pain persists, he will then undergo a cervical epidural steroid injection in the pain clinic. [address] [address] PAIN MANAGEMENT CONSULTATION Name: HUMBERTO GASPAR Room #: REG Phi Flavia#: [id number] Admission: 07/13/19 Attend Phys: Lizandro Mercado MD Discharge: Date of : 57 Report #: [id number] We would like to thank you for letting us participate in his care. We hope he continues to improve. <ELECTRONICALLY SIGNED> By: Lizandro Mercado MD 08/03/19 0814 0036 0118 Lizandro Mercado MD /ADAM
== END ==
LOC: PAIN 06:53
DX: M54.12 Radiculopathy, cervical region (principal); I25.2 Old myocardial infarction; I10 Essential (primary) hypertension; E78.00 Pure hypercholesterolemia, unspecified; Z95.5 Presence of coronary angioplasty implant and graft; Z79.82 Long term (current) use of aspirin; Z79.899 Other long term (current) drug therapy

== ENCOUNTER → 2019-07-25 | Outpatient (CLI) | payer OTHER ==
[~2019-07-25] VITALS: Ht 170.2 cm; Wt 96.8 kg
[2019-07-25 09:07] VITALS: BP 173/99
--- NOTE | 2019-07-25 09:14 | NUR ---
Pain Clinic Assessment: 1. History of Osteoarthritis: NECK History of Rheumatoid Arthritis: Not Applicable 2. Height: 5 ft. 7 in. 170.2 cm. Weight: 213.4 lb. oz. 96.798 kg. Patient's BMI: 33.4 3. Vital Signs: BP: 173/99 Pulse: 72 Resp: 18 Temp: 02 Sat: 98 ECG Mon: 4. Pain Intensity: 5 5. Fall Risk: Dizziness: Y Needs help standing or walking: N Fallen in the last 3 months: N Fall risk comments: 6. Patient on Blood Thinner: None 7. History of Hypertension: Y 8. Opioid Therapy greater than 6 weeks: N Opiate Contract Signed: 9. Risk Assessment Tool Provided: 10. Functional Assessment Tool: 11. Recreational Drug Use: Never Drug Type: Tobacco Use: Never Smoker Tobacco Type: Amount or Packs/day: How Many Years: Alcohol Use: No Frequency: Quant:
--- NOTE | 2019-08-03 08:25 | HPC ---
[facility] [address] [place] [address] PAIN MANAGEMENT CONSULTATION Name: HUMBERTO GASPAR Room #: REG ZOHAIB Alejandro#: [id number] Admission: 07/25/19 Attend Phys: Lizandro Mercado MD Discharge: Date of : 57 Report #: [id number] THIS REPORT FOR: //name// CC: Kirby Mercado DATE OF SERVICE: 07/25/2019 CHIEF COMPLAINT: Left arm and neck pain. HISTORY: The patient is a 64-year-old gentleman who has been seen in the pain clinic. He has been experiencing pain since 03/2019. At this point, the patient's pain has worsened. Movement of his head and arms exacerbate his discomfort. Notes some decreased strength in his hands. Has numbness and tingling in his index and thumb. He has been told that he has spinal stenosis. There is some burning discomfort in his left arm. She feels that his pain has progressed. Pain is 4/10 at this point, it can rise to the level of 6/10 particularly with use of a computer, driving, or other types of things where his arms are use. ALLERGIES: No known drug allergies. CURRENT MEDICATIONS: Aspirin 81 mg, Bystolic 20 mg, Cymbalta 30 mg, Zetia 10 mg, tramadol 50 mg every 4 hours, Lyrica 75 mg b.i.d., amlodipine 10 mg, and azilsartan 40 mg. PAIN CLINIC ASSESSMENT/PQRS: 1. The patient has some arthritic changes in his neck. He is not being treated for rheumatoid arthritis. 2. Height 5 feet 8 inches, weight is 213 pounds, BMI is 33.4. 3. Vital signs: Blood pressure 173/99, pulse 72, respiratory rate 18, room air saturation 98%. 4. Pain intensity 5/10. 5. Fall history: The patient has not fallen in the last 3 months. 6. Blood thinner. The patient is not on a blood thinning medication. 7. Hypertension. The patient is being treated for hypertension. 8. Opioids greater than 6 weeks. The patient receives medications from his primary. 9. Risk assessment tool, low for opioid use. 10. Functional assessment tool. 11. Recreational drug use: The patient denies. 12. Tobacco: The patient has never smoked. 13. Alcohol. The patient denies use of alcoholic beverages. PHYSICAL EXAMINATION: GENERAL: The patient is a well-developed, well-nourished white male. Appears [facility] [address] [place] [address] PAIN MANAGEMENT CONSULTATION Name: HUMBERTO GASPAR [id number] Admission: 07/25/19 Attend Phys: Lizandro Mercado MD Discharge: Date of : 57 Report #: [id number] his stated age. He is alert and oriented x 3. His affect is appropriate. Speech is fluent. HEAD, EYES, EARS, NOSE, AND THROAT: Normocephalic, atraumatic. Extraocular eye muscles intact. Sclerae nonicteric. Mucous membranes are moist. NECK: Without adenopathy or JVD. EXTREMITIES: Upper extremity, the patient has some pain and discomfort. Muscle strength is judged to be 5/5 for the major muscle groups. Has pain that radiates down into his left shoulder and into the forearm with numbness and tingling. Has perception of numbness and tingling in his thumb and index finger. HEART: Regular rate. ABDOMEN: Nontender. LUNGS: Clear to auscultation. MUSCULOSKELETAL: Lower extremity, 5/5 for the major muscle groups in the lower extremity. IMPRESSION: 1. Cervical radiculopathy involving the left arm with numbness and tingling of the thumb and middle finger with discomfort into the C6-C7 dermatomal distribution on the left hand. 2. Myocardial infarct x 2. 3. Hypertension. 4. Stent placement x 2. 5. Hypercholesterolemia. 6. Hypertension. 7. Emotional problems. RECOMMENDATIONS: We discussed the treatment options with the patient. Risks and benefits of an epidural steroid injection were discussed. They include but are not limited to infection, worsening pain, no improvement in pain, nerve damage, infection, paralysis. The patient agrees and elects to proceed. PROCEDURE NOTE: The patient was taken to the procedure area. He was then assisted in getting on the examination table. His back was sterilely prepped and the neck area with a Betadine solution. Fluoroscopy using anterior, posterior as well as lateral viewing, with fluoroscopy was undertaken. A 25-gauge needle was then used to anesthetize the skin at C7-T1 interspace space. A 17-gauge Tuohy with loss of resistance technique was then used to gain access to the epidural space. There was no CSF, heme or paresthesia. A total of 120 mg of triamcinolone was injected. The patient tolerated the procedure well. There were no complications. His pain decreased to 0 at the time of discharge. He will follow up in the future as needed. [address] [address] PAIN MANAGEMENT CONSULTATION Name: HUMBERTO GASPAR Room #: REG CLPhi ChandlerRobin#: [id number] Admission: 07/25/19 Attend Phys: Lizandro Mercado MD Discharge: Date of : 57 Report #: [id number] We would like to thank you for letting us to participate in his care. We hope he continues to improve. <ELECTRONICALLY SIGNED> By: Lizandro Mercado MD 08/03/19 0825 0909 1443 Lizandro Mercado MD /ADAM
== END | disposition home or self-care (01) ==
LOC: PAIN 06:50
DX: M54.12 Radiculopathy, cervical region (principal); I25.2 Old myocardial infarction; I10 Essential (primary) hypertension; E78.00 Pure hypercholesterolemia, unspecified; Z79.82 Long term (current) use of aspirin; Z79.899 Other long term (current) drug therapy

== ENCOUNTER → 2019-09-05 | Outpatient (CLI) | payer OTHER ==
[~2019-09-05] VITALS: Ht 170.2 cm; Wt 92.9 kg
[~2019-09-05] MED LIST changes: +AMITRIPTYLINE H10 M1 PO; +NEURONTIN 300300 M1 PO
[2019-09-05 09:03] VITALS: BP 134/81
--- NOTE | 2019-09-05 09:19 | NUR ---
Pain Clinic Assessment: 1. History of Osteoarthritis: NECK History of Rheumatoid Arthritis: Not Applicable 2. Height: 5 ft. 7 in. 170.2 cm. Weight: 204.8 lb. oz. 92.897 kg. Patient's BMI: 32.1 3. Vital Signs: BP: 134/81 Pulse: 70 Resp: 16 Temp: 02 Sat: 97 ECG Mon: 4. Pain Intensity: 6 5. Fall Risk: Dizziness: N Needs help standing or walking: N Fallen in the last 3 months: N Fall risk comments: 6. Patient on Blood Thinner: None 7. History of Hypertension: Y 8. Opioid Therapy greater than 6 weeks: N Opiate Contract Signed: 9. Risk Assessment Tool Provided: 10. Functional Assessment Tool: 11. Recreational Drug Use: Never Drug Type: Tobacco Use: Never Smoker Tobacco Type: Amount or Packs/day: How Many Years: Alcohol Use: No Frequency: Quant:
--- NOTE | 2019-09-12 13:08 | HPC ---
[facility] [place] [place] [address] PAIN MANAGEMENT CONSULTATION Name: HUMBERTO GASPAR Room #: REG Phi Flavia#: [id number] Admission: 09/05/19 Attend Phys: Lizandro Mercado MD Discharge: Date of : 57 Report #: [id number] THIS REPORT FOR: //name// CC: Jacinto Richard MD DATE OF SERVICE: 09/05/2019 CHIEF COMPLAINT: The pain improved, but I am still having quite a bit of pain that is radiating down into my left arm with numbness and tingling in am having difficulty sleeping because of the pain. HISTORY: The patient is a 64-year-old gentleman who has been followed in the Pain Clinic because of cervical radiculopathy. He has undergone a cervical epidural steroid injection. He has gleaned benefits from that. Still has significant amount of pain and discomfort. Notes that the numbness, tingling and weakness associated with his left hand is the most disconcerting problem. He feels that another injection would be helpful. He has pain that continues to radiate down in his left arm into his hand with numbness and tingling. As you may recall, he has some problems with the C6 and C7 vertebrae in his neck. Notes that pain is exacerbated with working on a computer. Driving anything that causes him to use his left arm and extended cause exacerbation of his pain. ALLERGIES: No known drug allergies. CURRENT MEDICATIONS: Aspirin 81 mg, Bystolic 20 mg, Cymbalta 30 mg, Zetia 10 mg, tramadol 50 mg q. 4 hours p.r.n., Lyrica 75 mg b.i.d., and amlodipine 10 mg and azilsartan 40 mg. PAIN CLINIC ASSESSMENT/PQRS: 1. The patient has some arthritic changes in his neck. He is not being treated for rheumatoid arthritis. 2. Height 5 feet 8 inches, weight 204 pounds, BMI is 32. 3. Vital signs: Blood pressure is 134/81, pulse 70, respiratory rate 16, room air saturation is 97%. 4. Pain intensity, 03/05. 5. Fall history: The patient has not fallen in the last 3 months. 6. Blood thinner. The patient is not on a blood thinning medication. 7. Hypertension. The patient is being treated for hypertension. 8. Opioids greater than 6 weeks. The patient receives medications from one source, the Pain Clinic or his primary. 9. Risk assessment tool, low for opioid use. 10. Functional assessment tool. 11. Recreational drug use: The patient denies. [address] [address] PAIN MANAGEMENT CONSULTATION Name: HUMBERTO GASPAR [id number]: 09/05/19 Attend Phys: Lizandro Mercado MD Discharge: Date of : 57 Report #: [id number] 12. Tobacco: The patient has never smoked. 13. Alcohol. The patient denies use of alcoholic beverages. PHYSICAL EXAMINATION: GENERAL: The patient is a well-developed, well-nourished white male. Appears his stated age. He is alert and oriented x 3. His affect is appropriate. Speech is fluent. HEENT: Normocephalic, atraumatic. Extraocular eye muscles intact. Sclerae nonicteric. Mucous membranes are moist. NECK: Without adenopathy or JVD. The patient notes some increased pain and discomfort in his neck. With certain positions when leaning to the left side notes that his pain can increase. Notes some numbness, tingling and radicular pain down into the left arm involving his hand. EXTREMITIES: Upper extremity muscle strength judged to be 5/5 for the major muscle groups on the right and 4+/5 on the left. HEART: Regular rate. ABDOMEN: Nontender. LUNGS: Clear to auscultation. MUSCULOSKELETAL: Lower extremity, 5/5 for the major muscle groups. In the lower extremity, the patient is without significant scoliosis, kyphosis or lordosis. IMPRESSION: 1. Cervical radiculopathy involving the left arm with pain, numbness and tingling in the thumb and middle finger with discomfort at the C6-C7 dermatomal distribution on the left hand. 2. Myocardial infarct x 2. 3. Hypertension. 4. Stent placement x 2. 5. Hypercholesterolemia. 6. Emotional problems. 7. who is severely ill at this juncture. RECOMMENDATIONS: We discussed treatment options with the patient. At this juncture, I think it would be reasonable for the patient to undergo another epidural steroid injection. He is having pain that continues to radiating down his left arm. As you may recall, his MRI shows. 1. C5-C6 generalized posterior disk osteophyte complex, which contributes to mild central canal stenosis and severe bilateral neural foraminal stenosis. 2. C6-C7, there is generalized posterior disk osteophyte complex, which contributes to severe left and mild right and [id number] left neural foraminal stenosis and mild canal stenosis. We will have the patient undergo physical therapy as well as he will continue with Lyrica 75 mg. He will increase this to 1 p.o. in the morning and 2 p.o. at night or vice versa. He will try amitriptyline 10 mg 1 p.o. at night and [facility] [address] [place] [address] PAIN MANAGEMENT CONSULTATION Name: DALIAARIANNAELAINAHUMBERTO LANDRY Room #: REG ZOHAIB Alejandro#: [id number] Admission: 09/05/19 Attend Phys: Lizandro Mercado MD Discharge: Date of : 57 Report #: [id number] increase this to two tablets at night to help with the pain and the burning sensation, which he is experiencing. A script for gabapentin 300 mg can be considered in the future if he finds that the Lyrica is not as efficacious. We would like to thank you for letting us participate in his care. We hope he continues to improve. <ELECTRONICALLY SIGNED> By: Lizandro Mercado MD 09/12/19 1308 [id number] Lizandro Mercado MD /nt
== END ==
LOC: PAIN 06:52
DX: M54.12 Radiculopathy, cervical region (principal); I25.2 Old myocardial infarction; I10 Essential (primary) hypertension; E78.00 Pure hypercholesterolemia, unspecified; Z95.5 Presence of coronary angioplasty implant and graft; Z79.899 Other long term (current) drug therapy

== ENCOUNTER → 2020-09-23 | Outpatient (CLI) | payer OTHER | LOC: SJCVCIMAG 06:54 | PROVIDERS: ATTEND Internal Medicine Cardiovascular Disease | DX: I25.10 Atherosclerotic heart disease of native coronary artery without angina pectoris (principal); R00.0 Tachycardia, unspecified; I25.5 Ischemic cardiomyopathy; I10 Essential (primary) hypertension; Z95.5 Presence of coronary angioplasty implant and graft; Z79.899 Other long term (current) drug therapy; Z87.891 Personal history of nicotine dependence ==

== ENCOUNTER → 2020-10-01 | Outpatient (CLI) | payer OTHER ==
[~2020-10-01] VITALS: Ht 170.2 cm; Wt 99.4 kg
[~2020-10-01] MED LIST changes: -ASA81BEC PO; +CRESTOR40 MG PO; -EDARBI40 MG PO; +EDARBI80 MG PO; +IBUPROFEN 200200 M1 PO; +NEURONTIN 300M300 M2 PO; +SPIRONOLACTONE25 MG PO
[2020-10-01 08:20] VITALS: BP 175/107
--- NOTE | 2020-10-01 08:37 | NUR ---
Pain Clinic Assessment: 1. History of Osteoarthritis: NECK History of Rheumatoid Arthritis: DENIES 2. Height: 5 ft. 7 in. 170.2 cm. Weight: 219.2 lb. oz. 99.429 kg. Patient's BMI: 34.3 3. Vital Signs: BP: 175/107 Pulse: 80 Resp: 20 Temp: 02 Sat: 98 ECG Mon: 4. Pain Intensity: 8 5. Fall Risk: Dizziness: N Needs help standing or walking: N Fallen in the last 3 months: N Fall risk comments: 6. Patient on Blood Thinner: None 7. History of Hypertension: Y 8. Opioid Therapy greater than 6 weeks: N Opiate Contract Signed: 9. Risk Assessment Tool Provided: 10. Functional Assessment Tool: 11. Recreational Drug Use: Never Drug Type: Tobacco Use: Never Smoker Tobacco Type: Amount or Packs/day: How Many Years: Alcohol Use: Yes Frequency: Weekly Quant:
== END ==
LOC: PAIN 09-21 06:41
PROVIDERS: ATTEND Anesthesiology Pain Medicine
DX: M48.02 Spinal stenosis, cervical region (principal); I10 Essential (primary) hypertension; E78.00 Pure hypercholesterolemia, unspecified; F98.9 Unspecified behavioral and emotional disorders with onset usually occurring in childhood and adolescence

== ENCOUNTER → 2020-10-15 | Outpatient (CLI) | payer OTHER ==
[2020-10-15 10:19] LABS: CREATININE 1.6 mg/dL (0.7-1.3)
== END ==
LOC: CAT 09:27
PROVIDERS: ATTEND Family Medicine
DX: D11.0 Benign neoplasm of parotid gland (principal); K11.8 Other diseases of salivary glands; M51.36 Other intervertebral disc degeneration, lumbar region

== ENCOUNTER → 2020-10-29 | Outpatient (CLI) | payer OTHER ==
[~2020-10-29] VITALS: Ht 170.2 cm; Wt 98.0 kg
[~2020-10-29] MED LIST changes: +CEFDINIR300 MG PO
[2020-10-29 08:17] VITALS: BP 174/100
--- NOTE | 2020-10-29 08:35 | NUR ---
Pain Clinic Assessment: 1. History of Osteoarthritis: NECK History of Rheumatoid Arthritis: DENIES 2. Height: 5 ft. 7 in. 170.2 cm. Weight: 216.0 lb. oz. 97.977 kg. Patient's BMI: 33.8 3. Vital Signs: BP: 174/100 Pulse: 63 Resp: 18 Temp: 02 Sat: 99 ECG Mon: 4. Pain Intensity: 6 5. Fall Risk: Dizziness: N Needs help standing or walking: N Fallen in the last 3 months: N Fall risk comments: 6. Patient on Blood Thinner: None 7. History of Hypertension: Y 8. Opioid Therapy greater than 6 weeks: N Opiate Contract Signed: 9. Risk Assessment Tool Provided: 10. Functional Assessment Tool: 11. Recreational Drug Use: Never Drug Type: Tobacco Use: Never Smoker Tobacco Type: Amount or Packs/day: How Many Years: Alcohol Use: Yes Frequency: Weekly Quant: 1-2
== END ==
LOC: PAIN 06:46
PROVIDERS: ATTEND Anesthesiology Pain Medicine
DX: M48.02 Spinal stenosis, cervical region (principal); K11.5 Sialolithiasis; M79.602 Pain in left arm; M25.78 Osteophyte, vertebrae; I10 Essential (primary) hypertension; E78.00 Pure hypercholesterolemia, unspecified; F98.9 Unspecified behavioral and emotional disorders with onset usually occurring in childhood and adolescence